=== PATIENT | female | born 1955 | race Caucasian/White ===

== ENCOUNTER 2021-11-09 12:32 | Emergency (ER) | payer OTHER ==
[2021-11-09 13:42] LABS: HEMOGLOBIN 13.2 gm/dl (12.3-15.3); RED BLOOD COUNT 4.43 M/UL (4.00-5.10); WHITE BLOOD COUNT 7.9 K/UL (4.5-11.0)
[2021-11-09 14:07] LABS: BUN/CREATININE RATIO 21 (0-10)
== END 2021-11-09 14:50 | disposition left against medical advice (07) ==
LOC: ER1 12:32
PROVIDERS: Family Medicine
DX: J18.9 Pneumonia, unspecified organism (principal); E11.9 Type 2 diabetes mellitus without complications
CPT/HCPCS: 71045; 80053; 82962; 83605; 83735; 84100; 85025; 87040; 93005; 99282

== ENCOUNTER 2022-01-19 05:20 | Emergency (ER) | payer OTHER ==
[2022-01-19 06:07] LABS: HEMOGLOBIN 11.1 gm/dl (12.3-15.3); RED BLOOD COUNT 4.17 M/UL (4.00-5.10); WHITE BLOOD COUNT 9.9 K/UL (4.5-11.0)
== END 2022-01-19 14:00 ==
LOC: ER1 05:20
PROVIDERS: Physician Assistant; Student in an Organized Health Care Education/Training Program
DX: K80.20 Calculus of gallbladder without cholecystitis without obstruction (principal); E11.10 Type 2 diabetes mellitus with ketoacidosis without coma; I11.9 Hypertensive heart disease without heart failure; M84.451A Pathological fracture, right femur, initial encounter for fracture; Z87.891 Personal history of nicotine dependence; Z88.0 Allergy status to penicillin; Z94.0 Kidney transplant status; Z20.822 Contact with and (suspected) exposure to COVID-19
CPT/HCPCS: 36600; 71045; 73502; 80048; 80053; 80197; 82009; 82550; 82553; 82800; 82803; 82962; 83605; 83690; 83880; 84484; 85025; 87040; 93005; 96374; 96375; 96376; 99285; C9113; J0696; J2270; J2405; U0002